=== PATIENT | female | born 1950 | race Caucasian/White ===

== ENCOUNTER 2019-09-18 23:31 | Emergency (ER) | payer MEDICARE ==
[~2019-09-18] VITALS: Ht 170.2 cm; Wt 124.3 kg
[~2019-09-18 23:31] MED LIST: ASCO500 PO; ASCORBIC ACID500 M1 PO; ASPI81CH PO; Aspir 8181 MG PO; CYCL10; CYCL10 PO; DHEA; DIGESTIVE ENZY220 MG PO; DILT300 PO; DILTIAZEM 24HR300 M2 PO; Dyazide 37.5-21 EACH PO; FURO20; FURO20 PO; K-Dur 20 meq T20 MEQ PO; Lopressor 25 mg25 MG PO; MAGCHL64ER; MAGNESIUM OXID500 MG PO; METO25 PO; NAPR250; Natural Vita400 UNIT PO; OMEGA-3 + VITA1 EAC2; POTCHL20ER PO; PRAM.5; PROBIOTIC1 EAC1; PROBIOTIC1 EAC1 PO; RAMI5; TELM80; TRIHYD253A PO; TRIHYD253B; VITAMIN D31000 UNI1 PO; Vitamin D2000 UNIT PO; Vitamin E400 UNI4 PO; XARELTO1 EACH PO; XARELTO10 MG PO
[2019-09-19] MEDS ORDERED: FISH OIL 1,001000 MG PO (00:19)
[2019-09-19 00:27] LABS: BASOPHILS ABSOLUTE AUTO 0.05 K/mm3 (0.00-0.23); BASOPHILS PERCENT AUTO 0 % (0-2); EOSINOPHILS ABSOLUTE AUTO 0.18 K/mm3 (0.00-0.68); EOSINOPHILS PERCENT AUTO 2 % (0-6); Hematocrit 43.2 % (33.0-51.0); Hemoglobin 14.7 g/dL (11.5-16.0); IMMATURE GRAN ABSOLUTE AUTO 0.04 K/mm3 (0.00-0.10); IMMATURE GRAN PERCENT AUTO 0 % (0-1); LYMPHOCYTES ABSOLUTE AUTO 3.02 K/mm3 (0.84-5.20); LYMPHOCYTES PERCENT AUTO 27 % (21-46); MONOCYTES ABSOLUTE AUTO 1.26 K/mm3 (0.16-1.47); MONOCYTES PERCENT AUTO 11 % (4-13); Mean Corpuscular HGB 33.6 pg (26.0-34.0); Mean Corpuscular Volume 99 fL (80-100); NEUTROPHILS ABSOLUTE AUTO 6.62 K/mm3 (1.96-9.15); NEUTROPHILS PERCENT AUTO 59 % (41-73); Platelet Count 268 K/mm3 (150-400); RDW Coefficient Variation 12.2 % (11.7-14.2); RDW Standard Deviation 44.6 fL (35.1-46.3); Red Blood Cell Count 4.37 M/mm3 (3.80-5.20); White Blood Cell Count 11.17 K/mm3 (4.00-11.30)
[2019-09-19 00:45] LABS: Albumin, Blood 3.6 g/dL (3.4-5.0); Albumin/Globulin Ratio 0.8 (0.8-1.8); Bilirubin, Total 0.6 mg/dL (0.1-1.0); Bun/Creatinine Ratio 23.5 (12.0-20.0); Calcium, Blood 9.4 mg/dL (8.5-10.1); Creatinine, Blood 1.15 mg/dL (0.40-1.00); Globulin, Blood 4.5 g/dL (2.2-4.0); Potassium, Blood 4.3 mmol/L (3.5-5.5); Total Protein, Blood 8.1 g/dL (6.4-8.2); Uric Acid, Blood 7.9 mg/dL (2.6-6.0)
[2019-09-19] MEDS ORDERED: Prednisone20 MG PO (01:16)
== END 2019-09-19 01:46 | disposition home or self-care (01) ==
LOC: ER 23:31
PROVIDERS: Emergency Medicine
DX: M10.9 Gout, unspecified (principal); I48.91 Unspecified atrial fibrillation
CPT/HCPCS: 36415; 73630; 80053; 84550; 85025; 96374; 99283-25; A9270; J1100

== ENCOUNTER → 2021-05-03 | Outpatient (CLI) | payer MEDICARE ==
[~2021-05-03] MED LIST changes: +AMLO10 PO; +ATOR40TA PO; +ATORVASTATIN CA20 MG PO; +DILT120 PO; +DILT30 PO; +DILT60 PO; +ELIQUIS5 MG PO; +FISH OIL 1,001000 MG PO; +MIRT15 PO; +Prednisone20 MG PO; +QUIN5 PO
== END | disposition home or self-care (01) ==
LOC: LAB 15:04 → LAB SHORT 15:04
DX: M67.441 Ganglion, right hand (principal)
CPT/HCPCS: 88304

== ENCOUNTER 2022-04-29 22:39 | Emergency (ER) | payer MEDICARE ==
[~2022-04-29] VITALS: Ht 170.2 cm; Wt 117.9 kg
== END 2022-04-29 23:49 | disposition home or self-care (01) ==
LOC: ER 22:39
DX: I10 Essential (primary) hypertension (principal); I48.91 Unspecified atrial fibrillation; Z79.01 Long term (current) use of anticoagulants
CPT/HCPCS: 99283

== ENCOUNTER 2025-05-29 09:10 | Day surgery (SDC) | payer MEDICARE ==
[~2025-05-29] VITALS: Ht 167.6 cm; Wt 100.0 kg
[2025-05-29] VITALS (8 sets, daily range): BP systolic 93–134; BP diastolic 32–104
[2025-05-29] MEDS ORDERED: COENZYME Q-10100 MG PO (09:31)
[2025-05-29] MEDS ORDERED: PROBIOTIC1 EA13 PO (09:32)
[2025-05-29] MEDS ORDERED: OLME20 PO (09:33)
[2025-05-29] MEDS ORDERED: MAGNESIUM OXID500 MG PO (09:33)
[2025-05-29] MEDS ORDERED: ASCORBIC ACID500 MG PO (09:33)
[2025-05-29] MEDS ORDERED: ELEMENTAL ZINC30 MG PO (09:34)
[2025-05-29] MEDS ORDERED: CURCUMIN PHYTO500 MG PO (09:35)
[2025-05-29] MEDS ORDERED: Verapamil HCL 2.5 MG/ML 2ML Injection ONE (09:59)
[2025-05-29] MEDS ORDERED: Heparin Sodium 1000 Units/ML 10ML MDV ONE (10:00)
[2025-05-29] MEDS ORDERED: Nitroglycerin 2 MG/20 ML BTL ONE (10:00)
[2025-05-29] MEDS ORDERED: NS 250 ML IV ONE (10:00)
[2025-05-29] MEDS ORDERED: NS 1,000 ML IV ONE ×2 (10:00→10:01)
[2025-05-29] MEDS ORDERED: Midazolam HCl 1MG / ML 2ML Vial ONE (10:20)
[2025-05-29] MEDS ORDERED: FentaNYL Citrate 50 MCG/ML 2 ML Injection ONE (10:20)
--- NOTE | 2025-05-29 12:37 | NUR ---
ASSUMING CARE OF PT, DURING PRIMARY RN LUNCH BREAK. BEGAN DEFLATING TR BAND. NO BLEEDING OR HEMATOMA. PT NOTIFING RIDE ON APPROX D/C.
--- NOTE | 2025-05-29 12:55 | NUR ---
TR BAND FULLY DEFLATED. NO BLEEDING OR HEAMATOMA NOTED.
--- NOTE | 2025-05-29 13:55 | NUR ---
PATIENT RETURNED EARLIER FROM PROCEDURE, TR BAND ULNAR ACCESS, SITE INTACT, NO HEMATOMA. VSS, GIVEN FOOD/DRINK, WATCH TV, TR BAND RECENTLY AIR RELEASED AND TR BAND REMOVED, DISCUSSED EARLIER D/C INSTRUCTIONS, D/C TEACHING ON SITE CARE, RESTART BLOOD THINNER TOMORROW AND FOLLOW UP APPOINTMENT PLAN, NO QUESTIONS OR CONCERNS, DISCUSS CALL OR RETURN IF NEEDED, IV REMOVED AND CLOTH DOT AT ULNAR SITE FROM CATH, DRESSED, BELONGINGS RETURNED, PATIENT TAKEN BY W/C TO MAIN ENTRANCE, SITE REMAINS INTACT, PATIENT LEFT RECOVERY AT 1345.
== END 2025-05-29 13:45 | disposition home or self-care (01) ==
LOC: MHTC 09:10
DX: I35.0 Nonrheumatic aortic (valve) stenosis (principal); I48.0 Paroxysmal atrial fibrillation; I49.5 Sick sinus syndrome; I12.9 Hypertensive chronic kidney disease with stage 1 through stage 4 chronic kidney disease, or unspecified chronic kidney disease; N18.32 Chronic kidney disease, stage 3b; E78.5 Hyperlipidemia, unspecified; G47.33 Obstructive sleep apnea (adult) (pediatric); E87.5 Hyperkalemia; E66.01 Morbid (severe) obesity due to excess calories; Z68.35 Body mass index [BMI] 35.0-35.9, adult; Z86.718 Personal history of other venous thrombosis and embolism; Z79.01 Long term (current) use of anticoagulants; Z79.899 Other long term (current) drug therapy
CPT/HCPCS: 76937; 93454; 99152; C1769; C1887; C1894; J1644; J2250; J3010; J7030; J7050; Q9967